=== PATIENT | female | born 1955 | race Caucasian/White ===

== ENCOUNTER 2018-08-05 07:08 | Day surgery (SDC) | payer BC ==
[~2018-08-05 07:08] MED LIST: Acetaminophen TAB* 325 MG PO PRN; Buffered Lidocaine 1% SYRIN* 1 ML/SYRINGE INTRADERM ONE
[2018-08-05] MEDS ORDERED: Midazolam* 1 MG/ML 5 ML VIAL (5 MG) ONE (08:57)
[2018-08-05 10:20] VITALS: BP 144/63
--- NOTE | 2018-08-05 11:38 | OP ---
OPERATIVE NOTE: DATE OF OPERATION: 08/05/18 DATE OF : 59 SURGEON: Anthony Mark M.D. PREOPERATIVE DIAGNOSIS: Cataract, left eye. POSTOPERATIVE DIAGNOSIS: Cataract, left eye. OPERATIVE PROCEDURE: Extracapsular cataract extraction with IOL implant, right eye. PROCEDURE: The patient was brought to the operating room after being given 1/2% Alcaine with epineph rine drops in the preoperative area. The eye was prepped and draped in the usual sterile fashion. S terile drape and eyelid speculum were placed. Again, topical 1/2% Alcaine with epinephrine was given . A paracentesis incision was made at the 3 o'clock position with the No.75 blade. Clear cornea inc ision 2.2 x 2.2-mm was created at the 6 o'clock position starting at the anterior limbus using the 2. 2-mm keratome. The anterior chamber was irrigated with 0.4 mL of 1% non-preservative intracameral li docaine and filled with DisCoVisc. A capsulorrhexis was completed using the cystotome and the Utrata forceps. Hydrodissection was performed with balanced salt solution. The lens nucleus was removed wi th the Phacoemulsification handpiece without incident. Cortex was removed with the irrigation-aspira tion handpiece. The capsular bag was re-inflated using DisCoVisc and an [id number] implant was insert ed with the shooter. The irrigation-aspiration handpiece was used to remove all residual DisCoVisc. The eye was refilled with balanced salt solution and the wound checked and found to be watertight. Topical Maxitrol drops were given. [id number]/[facility] #: [id number]
[2018-08-05] MEDS ORDERED: Neomycin/Polymy/Dex OPTH.SUSP* MAXITROL 0.1% 5 ML ONE (13:49)
[2018-08-05] MEDS ORDERED: Lidocaine 2% EPI 1:200000 MPF*10-20 ML VIAL ONE (13:49)
[2018-08-05] MEDS ORDERED: Ketorolac 0.5% OPHTH (NF) 0.5 % 5 ML BTL ONE (13:49)
[2018-08-05] MEDS ORDERED: Proparacaine 0.5% OPHTH.SOL* 15 ML BTL ONE (13:49)
[2018-08-05] MEDS ORDERED: Povidone Iodine 5% OPTH* 30 ML BTL ONE (13:49)
[2018-08-05] MEDS ORDERED: Phenylephrine OPHTH SOL 2.5%* 2 ML ONE (13:49)
[2018-08-05] MEDS ORDERED: acetaZOLAMIDE TAB* 250 MG ONE (13:49)
[2018-08-05] MEDS ORDERED: Lidocaine 1%* 5 ML VIAL ONE (13:49)
[2018-08-05] MEDS ORDERED: Cyclopentolate 1% OPTH.SOL* 2 ML BTL ONE (13:49)
== END 2018-08-05 10:08 | disposition home or self-care (01) ==
LOC: OREAST 07:08
PROVIDERS: ATTEND Specialist
DX: H25.812 Combined forms of age-related cataract, left eye (principal); H43.812 Vitreous degeneration, left eye; Z88.1 Allergy status to other antibiotic agents; E03.9 Hypothyroidism, unspecified; Z86.711 Personal history of pulmonary embolism; Z79.82 Long term (current) use of aspirin
CPT/HCPCS: A9270-GY; J2250; V2788

== ENCOUNTER 2018-08-12 07:43 | Day surgery (SDC) | payer BC ==
[2018-08-12] MEDS ORDERED: Midazolam* 1 MG/ML 2 ML VIAL (2 MG) ONE (09:39)
[2018-08-12 10:47] VITALS: BP 121/72
[2018-08-12] MEDS ORDERED: Povidone Iodine 5% OPTH* 30 ML BTL ONE (10:55)
[2018-08-12] MEDS ORDERED: Lidocaine 2% EPI 1:200000 MPF*10-20 ML VIAL ONE (10:55)
[2018-08-12] MEDS ORDERED: acetaZOLAMIDE TAB* 250 MG ONE (10:55)
[2018-08-12] MEDS ORDERED: Neomycin/Polymy/Dex OPTH.SUSP* MAXITROL 0.1% 5 ML ONE (10:55)
[2018-08-12] MEDS ORDERED: Lidocaine 1%* 5 ML VIAL ONE (10:55)
[2018-08-12] MEDS ORDERED: Ketorolac 0.5% OPHTH (NF) 0.5 % 5 ML BTL ONE (10:55)
[2018-08-12] MEDS ORDERED: Proparacaine 0.5% OPHTH.SOL* 15 ML BTL ONE (10:55)
[2018-08-12] MEDS ORDERED: Cyclopentolate 1% OPTH.SOL* 2 ML BTL ONE (10:55)
[2018-08-12] MEDS ORDERED: Phenylephrine OPHTH SOL 2.5%* 2 ML ONE (10:55)
--- NOTE | 2018-08-12 11:08 | OP ---
DATE OF OPERATION: 08/12/2018. DATE OF : 1955. SURGEON: Anthony Mark M.D. PREOPERATIVE DIAGNOSIS: Cataract right eye. POSTOPERATIVE DIAGNOSIS: Cataract right eye. OPERATIVE PROCEDURE: Extracapsular cataract extraction with intraocular lens implant right eye. PROCEDURE: The patient was brought to the operating room after being given 1/2% Alcaine with epineph rine drops in the preoperative area. The eye was prepped and draped in the usual sterile fashion. S terile drape and eyelid speculum were placed. Again, topical 1/2% Alcaine with epinephrine was given . A paracentesis incision was made at the 9 o'clock position with the No.75 blade. Clear cornea inc ision 2.2 x 2.2-mm was created at the 12 o'clock position starting at the anterior limbus using the 2 .2-mm keratome. The anterior chamber was irrigated with 0.4 mL of 1% non-preservative intracameral l idocaine and filled with DisCoVisc. A capsulorrhexis was completed using the cystotome and the Utrat a forceps. Hydrodissection was performed with balanced salt solution. The lens nucleus was removed w ith the Phacoemulsification handpiece without incident. Cortex was removed with the irrigation-aspir ation handpiece. The capsular bag was re-inflated using DisCoVisc and an [id number] implant was inser hortencia with the shooter. All measurements were confirmed with ORA. The irrigation-aspiration handpiece was used to remove all residual DisCoVisc. The eye was refilled with balanced salt solution and the wound checked and found to be watertight. Topical Maxitrol drops were given. [id number]/[facility] #: [id number]
== END 2018-08-12 10:50 | disposition home or self-care (01) ==
LOC: OREAST 07:43
PROVIDERS: ATTEND Specialist
DX: H25.811 Combined forms of age-related cataract, right eye (principal); E03.9 Hypothyroidism, unspecified; Z86.711 Personal history of pulmonary embolism
CPT/HCPCS: A9270-GY; J2250; V2788

== ENCOUNTER 2019-01-24 16:22 | Emergency (ER) | payer BC ==
[2019-01-24 16:35] VITALS: BP 147/80
--- NOTE | 2019-01-24 16:39 | UC ---
Skin Complaint HPI - HPI Summary HPI Summary: tick partially removed from right side of back this morning---unsure how long tick was attached for - History of Current Complaint Chief Complaint: UCSkin Time Seen by Provider: 01/24/19 16:35 Stated Complaint: TICK BITE Hx Last Menstrual Period: post ?: No Onset/Duration: Sudden Onset Timing: Constant Pain Intensity: 0 Pain Scale Used: 0-10 Numeric Location: Discrete Aggravating Factor(s): Nothing Alleviating Factor(s): Nothing Associated Signs & Symptoms: Positive: Negative Related History: Insect Bite/Sting - Allergy/Home Medications Allergies/Adverse Reactions: Allergies Allergy/AdvReac Type Severity Reaction Status Date / Time amoxicillin Allergy Hives Verified 01/24/19 16:37 PMH/Surg Hx/FS Hx/Imm Hx Previously Healthy: No Endocrine History: Hypothyroidism - Surgical History Surgical History: Yes Surgery Procedure, Year, and Place: APPENDECTOMY, TONSILLECTOMY - Family History Known Family History: Positive: None - Social History Occupation: Employed Full-time Lives: With Family Alcohol Use: Occasionally Alcohol Amount: 1 glass once every 2 weeks Substance Use Type: None Smoking Status (MU): Never Smoked Tobacco Review of Systems All Other Systems Reviewed And Are Negative: Yes Constitutional: Positive: Negative Skin: Positive: Other - tick bite left upper back Eyes: Positive: Negative ENT: Positive: Negative Respiratory: Positive: Negative Cardiovascular: Positive: Negative Gastrointestinal: Positive: Negative Genitourinary: Positive: Negative Motor: Positive: Negative Neurovascular: Positive: Negative Musculoskeletal: Positive: Negative Neurological: Positive: Negative Psychological: Positive: Negative Is Patient Immunocompromised?: No Physical Exam Triage Information Reviewed: Yes Appearance: Well-Appearing, No Pain Distress, Well-Nourished Vital Signs: Initial Vital Signs Temp 99.3 F 01/24/19 16:29 Pulse 67 01/24/19 16:29 Resp 16 01/24/19 16:29 BP 147/80 01/24/19 16:29 Pulse Ox 97 01/24/19 16:29 Vital Signs Reviewed: Yes Eye Exam: Normal Eyes: Positive: Conjunctiva Clear ENT Exam: Normal ENT: Positive: Normal ENT inspection, Hearing grossly normal. Negative: Trismus , Muffled voice, Hoarse voice Dental Exam: Normal Neck exam: Normal Neck: Positive: Supple, Nontender Respiratory Exam: Normal Respiratory: Positive: Chest non-tender, No respiratory distress, No accessory muscle use Cardiovascular Exam: Normal Cardiovascular: Positive: RRR, Pulses Normal, Brisk Capillary Refill Musculoskeletal Exam: Normal Musculoskeletal: Positive: Strength Intact, ROM Intact, No Edema Neurological Exam: Normal Neurological: Positive: Alert Psychological Exam: Normal Skin: Positive: Other - remainder of tick mouth parts removed-- Course/Dx - Course Course Of Treatment: soap and water wash, dox 200 mg times one now---observe for s/s of lyme and follow with provider - Diagnoses Provider Diagnosis: Risk of exposure to Lyme disease, Tick bite with subsequent removal of tick, Hypertension Discharge ED - Sign-Out/Discharge Documenting (check all that apply): Patient Departure All imaging exams completed and their final reports reviewed: No Studies - Discharge Plan Condition: Stable Disposition: HOME Patient Education Materials: Lyme Disease (ED), Insect Bite or Sting (ED), Hypertension (ED) Referrals: Angelica Jha MD [Primary Care Provider] - 2 Weeks (for bp recheck and should any symptoms of Lyme occur) - Billing Disposition and Condition Condition: STABLE Disposition: Home - Attestation Statements Provider Attestation: Per institutional requirements, I have reviewed the chart, however, I was not consulted specifically or made aware of this patient by the midlevel provider. I did not personally evaluate, interact with , or disposition this patient.
[2019-01-24] MEDS ORDERED: DOXYcycline CAP(*) 100 MG PO ONE (16:48)
== END 2019-01-24 17:00 | disposition home or self-care (01) ==
LOC: UCEAST 16:22
DX: S20.462A Insect bite (nonvenomous) of left back wall of thorax, initial encounter (principal); Z88.0 Allergy status to penicillin; W57.XXXA Bitten or stung by nonvenomous insect and other nonvenomous arthropods, initial encounter; Y92.9 Unspecified place or not applicable
CPT/HCPCS: 99212; A9270-GY; G0463

== ENCOUNTER 2020-08-22 14:51 | Observation (INO) ==
[2020-08-22] MEDS ORDERED: NS 0.9% 1000 ml BAG 1,000 ML IV ONE ×2 (15:17→17:08)
[2020-08-22] MEDS ORDERED: Ondansetron 4 mg VIAL 2 MG/ML 2 ml VIAL IV ONE (16:27)
[2020-08-22] MEDS ORDERED: Morphine 4 MG/ML VIAL (1 ml) IV ONE (16:27)
[2020-08-22 16:40] LABS: ABS Lymphocytes 1.1 10^3/ul (1.0-4.8); ABS Monocytes 1.2 10^3/ul (0-0.8); Hematocrit 43 % (35-47); Hemoglobin 15.3 g/dL (12.0-16.0); Lymphocyte % 6.5 %; Mean Corpuscular HGB Conc 35 g/dL (31-36); Mean Corpuscular Hemoglobin 30 pg (27-31); Mean Corpuscular Volume 85 fL (80-97); Platelet Count 254 10^3/uL (150-450); Red Blood Count 5.11 10^6 /uL (3.70-4.87); Red Cell Distribution Width 14 % (10-15); White Blood Count 17.4 10^3/uL (3.5-10.8)
[2020-08-22 17:12] LABS: Albumin 4.4 g/dL (3.2-5.2); Albumin/Globulin Ratio 1.4 (1-3); Calcium 9.8 mg/dL (8.6-10.3); EGFR Non-African American 56.2 (>60); Globulin 3.1 g/dL (2-4); Total Bilirubin 2.7 mg/dL (0.2-1.0); Total Protein 7.5 g/dL (6.4-8.9)
[2020-08-22] MEDS ORDERED: oxyCODONE/Acetamin 5/325 mg TAB PO ONE (17:30)
[2020-08-22] MEDS ORDERED: Ondansetron 4 mg VIAL 2 MG/ML 2 ml VIAL IV PRN (18:43)
[2020-08-22] MEDS ORDERED: Morphine 2 MG/ML SYRINGE IV PRN (18:47)
[2020-08-22] MEDS ORDERED: Polyethylene Glycol 3350 17 GM PACKET PO PRN (18:56)
[2020-08-22] MEDS ORDERED: Lactated Ringers 1000 ml BAG 1,000 ML IV SCH (19:00)
[2020-08-22] MEDS: cefTRIAXone 2 GM ADDV.VIAL 2 GM in NS 0.9% 100 ml BAG 100 ML IV SCH ×2 (19:35→21:04)
[2020-08-22] MEDS: NS 0.9% 1000 ml BAG 1,000 ML IV SCH (20:46)
[2020-08-22] MEDS ORDERED: Aspirin EC 81 mg TAB.EC (enteric coated) PO SCH (21:00)
[2020-08-22] MEDS: Heparin 5000 UNITS/ML 1 mL VIAL SUBCUT SCH (21:04)
[2020-08-23] MEDS: NS 0.9% 1000 ml BAG 1,000 ML IV SCH ×3 (02:22→11:54)
[2020-08-23 06:09] LABS: ABS Lymphocytes 1.1 10^3/ul (1.0-4.8); ABS Monocytes 0.9 10^3/ul (0-0.8); ABS Neutrophils 9.1 10^3/ul (1.5-7.7); Eosinophil % 0.1 %; Hematocrit 38 % (35-47); Hemoglobin 13.2 g/dL (12.0-16.0); Lymphocyte % 10.1 %; Mean Corpuscular HGB Conc 35 g/dL (31-36); Mean Corpuscular Hemoglobin 30 pg (27-31); Mean Corpuscular Volume 85 fL (80-97); Mean Platelet Volume 8.5 fL (7.4-10.4); Platelet Count 203 10^3/uL (150-450); Red Blood Count 4.46 10^6 /uL (3.70-4.87); Red Cell Distribution Width 14 % (10-15); White Blood Count 11.1 10^3/uL (3.5-10.8)
[2020-08-23 06:23] LABS: Albumin 3.3 g/dL (3.2-5.2); Albumin/Globulin Ratio 1.2 (1-3); Calcium 8.4 mg/dL (8.6-10.3); EGFR African American 70.4 (>60); EGFR Non-African American 58.2 (>60); Globulin 2.7 g/dL (2-4); Potassium 3.7 mmol/L (3.5-5.0); Total Bilirubin 1.2 mg/dL (0.2-1.0)
[2020-08-23] MEDS: Heparin 5000 UNITS/ML 1 mL VIAL SUBCUT SCH ×2 (06:25→14:27)
[2020-08-23 09:47] LABS: Urine Appearance Clear; Urine Bilirubin Negative (Negative); Urine Blood 1+ (Negative); Urine Color Yellow; Urine Glucose Negative (Negative); Urine Ketones Trace (Negative); Urine Nitrite Negative (Negative); Urine Protein Negative (Negative); Urine Specific Gravity 1.011 (1.002-1.030); Urine Urobilinogen Negative (Negative)
[2020-08-23 09:53] LABS: Urine Bacteria Absent (Absent); Urine Red Blood Cell 1+(3-5/hpf) (Absent); Urine Squamous Epithelial Cell Present (Absent); Urine White Blood Cell Trace(0-5/hpf) (Absent)
[2020-08-23 16:27] VITALS: BP 141/66
== END 2020-08-23 18:00 | disposition home or self-care (01) ==
LOC: MED 14:51 → ED 14:51
PROVIDERS: ADMIT Hospitalist; ATTEND Hospitalist

== ENCOUNTER 2020-09-07 09:46 | Observation (INO) ==
[2020-09-07 12:52] LABS: ABS Basophils 0.1 10^3/ul (0-0.2); ABS Eosinophils 0.1 10^3/ul (0-0.6); ABS Lymphocytes 2.3 10^3/ul (1.0-4.8); ABS Monocytes 0.4 10^3/ul (0-0.8); ABS Neutrophils 4.4 10^3/ul (1.5-7.7); Eosinophil % 1.2 %; Hematocrit 43 % (35-47); Hemoglobin 14.4 g/dL (12.0-16.0); Lymphocyte % 31.6 %; Mean Corpuscular HGB Conc 33 g/dL (31-36); Mean Corpuscular Hemoglobin 29 pg (27-31); Mean Corpuscular Volume 88 fL (80-97); Mean Platelet Volume 8.2 fL (7.4-10.4); Platelet Count 288 10^3/uL (150-450); Red Blood Count 4.92 10^6 /uL (3.70-4.87); Red Cell Distribution Width 14 % (10-15); White Blood Count 7.2 10^3/uL (3.5-10.8)
[2020-09-07 13:01] LABS: Activated Partial Thrombo Time 26.7 seconds (26.0-38.0); INR 1.08 (0.82-1.09)
[2020-09-07 13:14] LABS: Troponin I 0.53 ng/mL (<0.03)
[2020-09-07 13:17] LABS: ALT 39 U/L (7-52); AST 33 U/L (13-39); Albumin 4.5 g/dL (3.2-5.2); Albumin/Globulin Ratio 1.3 (1-3); Alkaline Phosphatase 66 U/L (35-149); Anion Gap 7 mmol/L (2-11); Blood Urea Nitrogen 10 mg/dL (6-24); C Reactive Protein 3.14 mg/L (<8.01); CO2 Carbon Dioxide 26 mmol/L (22-32); Calcium 10.3 mg/dL (8.6-10.3); Chloride 104 mmol/L (101-111); EGFR African American 102.3 (>60); EGFR Non-African American 84.5 (>60); Globulin 3.4 g/dL (2-4); Glucose 88 mg/dL (70-100); Potassium 3.6 mmol/L (3.5-5.0); Sodium 137 mmol/L (135-145); Total Protein 7.9 g/dL (6.4-8.9)
[2020-09-07] MEDS ORDERED: Iodixanol (CONTRAST) 320 MG/ML 100 ML SDV IV ONE (13:29)
[2020-09-07] MEDS ORDERED: Heparin DRIP 25,000 UNITS BAG 25,000 UNITS/500 ML BAG IV SCH (14:15)
[2020-09-07] MEDS ORDERED: Heparin 5000 UNITS/ML 1 mL VIAL IV SCH (15:00)
[2020-09-07] MEDS: Enoxaparin 80 MG/0.8 ML SYR SUBCUT SCH (15:36)
[2020-09-07 18:38] LABS: Troponin I 0.35 ng/mL (<0.03)
[2020-09-07] MEDS ORDERED: Aspirin EC 81 mg TAB.EC (enteric coated) PO SCH (21:00)
[2020-09-08] MEDS: Enoxaparin 80 MG/0.8 ML SYR SUBCUT SCH (03:57)
[2020-09-08 06:03] LABS: ABS Eosinophils 0.1 10^3/ul (0-0.6); ABS Lymphocytes 2.2 10^3/ul (1.0-4.8); ABS Monocytes 0.4 10^3/ul (0-0.8); ABS Neutrophils 3.4 10^3/ul (1.5-7.7); Hematocrit 39 % (35-47); Hemoglobin 13.4 g/dL (12.0-16.0); Lymphocyte % 35.3 %; Mean Corpuscular HGB Conc 34 g/dL (31-36); Mean Corpuscular Hemoglobin 30 pg (27-31); Mean Corpuscular Volume 87 fL (80-97); Mean Platelet Volume 8.2 fL (7.4-10.4); Nucleated Red Blood Cells % 0.1; Platelet Count 253 10^3/uL (150-450); Red Blood Count 4.51 10^6 /uL (3.70-4.87); Red Cell Distribution Width 14 % (10-15); White Blood Count 6.1 10^3/uL (3.5-10.8)
[2020-09-08 07:01] LABS: Calcium 9.7 mg/dL (8.6-10.3); EGFR Non-African American 85.9 (>60); Potassium 4.1 mmol/L (3.5-5.0)
[2020-09-08 12:26] VITALS: BP 136/66
== END 2020-09-08 14:30 | disposition home or self-care (01) ==
LOC: ED 09:46 → MEDTELE 09:46
PROVIDERS: ADMIT Internal Medicine; ATTEND Internal Medicine